=== PATIENT | female | born 1990 | race Two or more races ===

== ENCOUNTER 2021-12-04 09:51 | Day surgery (SDC) | payer OTHER | END 2021-12-04 18:35 | disposition home or self-care (01) | LOC: CIR.AMB 09:51 | PROVIDERS: ATTEND Obstetrics & Gynecology Maternal & Fetal Medicine | DX: O02.1 Missed abortion (principal); Z20.822 Contact with and (suspected) exposure to COVID-19; I10 Essential (primary) hypertension; J45.909 Unspecified asthma, uncomplicated; G43.909 Migraine, unspecified, not intractable, without status migrainosus; E66.9 Obesity, unspecified ==

== ENCOUNTER 2022-05-05 05:10 | Day surgery (SDC) | payer BC | END 2022-05-05 10:30 | disposition home or self-care (01) | LOC: CIR.AMB 05:10 | PROVIDERS: ATTEND Obstetrics & Gynecology Maternal & Fetal Medicine | DX: O02.1 Missed abortion (principal); O72.2 Delayed and secondary postpartum hemorrhage; I10 Essential (primary) hypertension; Z20.822 Contact with and (suspected) exposure to COVID-19 ==